=== PATIENT | male | born 2000 | race African-American/Black ===

== ENCOUNTER → 2019-05-24 | Emergency (ER) | payer MEDICAID, OTHER ==
[2019-05-24] MEDS: METHYLPREDNISOLONE 125 MG INJ IM (20:19)
[2019-05-24] MEDS: IPRATROPIUM (NEB) 0.5 MG/2.5 ML AMP NEB (20:20)
[2019-05-24] MEDS: ALBUTEROL 0.083% (NEB) 2.5 MG/3 ML AMP NEB (20:20)
== END | disposition home or self-care (01) ==
LOC: FTE 19:03
DX: J45.20 Mild intermittent asthma, uncomplicated (principal); Z91.010 Allergy to peanuts
CPT/HCPCS: 94664; 96372; 99284-25